=== PATIENT | female | born 1960 | race Caucasian/White ===

== ENCOUNTER → 2023-10-31 11:01 | Outpatient (REF) | payer MEDICARE, SELFPAY | LOC: WDC 11:01 | PROVIDERS: ATTENDING PHYSICIAN Student in an Organized Health Care Education/Training Program | DX: Z12.31 Encounter for screening mammogram for malignant neoplasm of breast (principal) | CPT/HCPCS: 77063; 77067 ==

== ENCOUNTER → 2023-11-20 09:57 | Outpatient (REF) | payer MEDICARE, SELFPAY | LOC: HWRAD 09:57 | PROVIDERS: ATTENDING PHYSICIAN Student in an Organized Health Care Education/Training Program | DX: M25.562 Pain in left knee (principal); M25.521 Pain in right elbow | CPT/HCPCS: 73080; 73564 ==

== ENCOUNTER → 2024-11-16 15:36 | Outpatient (REF) | payer MEDICARE, SELFPAY | LOC: WDC 15:36 | PROVIDERS: ATTENDING PHYSICIAN Student in an Organized Health Care Education/Training Program | DX: Z12.31 Encounter for screening mammogram for malignant neoplasm of breast (principal) | CPT/HCPCS: 77063; 77067 ==

== ENCOUNTER → 2024-11-30 15:30 | Outpatient (REF) | payer MEDICARE, SELFPAY | LOC: HWRCS 15:30 | PROVIDERS: ATTENDING PHYSICIAN Internal Medicine Interventional Cardiology; FAMILY PHYSICIAN Student in an Organized Health Care Education/Training Program | DX: R00.2 Palpitations (principal); R06.09 Other forms of dyspnea | CPT/HCPCS: 93306 ==

== ENCOUNTER → 2024-12-09 08:16 | Outpatient (REF) | payer MEDICARE, SELFPAY | LOC: HWRCS 08:16 | PROVIDERS: ATTENDING PHYSICIAN Internal Medicine Interventional Cardiology; FAMILY PHYSICIAN Student in an Organized Health Care Education/Training Program | DX: R00.2 Palpitations (principal); R06.09 Other forms of dyspnea | CPT/HCPCS: 78452; 93017; A9500 ==

== ENCOUNTER 2025-03-14 06:22 | Day surgery (SDC) | payer MEDICARE, SELFPAY ==
[2025-03-14] VITALS (9 sets, daily range): BP systolic 104–134; BP diastolic 54–69; BMI 27.7
[2025-03-14] MEDS: NSS 206 ML IV (07:10)
--- NOTE | 2025-03-14 07:19 | ITS.CL.CATH ---
[facility] - Catheterization
Cardiac Catheterization
Procedure Report:
LEFT HEART CATHETERIZATION
Date of Procedure: March 14, 2025
Referring: Shara Gilliland MD
PROCEDURES:
1. Left heart catheterization, coronary angiogram.
2. Moderate sedation.
INDICATION: Ms. Campbell is a 65 year old with hypertension, hyperlipidemia with ongoing exertional chest burning with abnormal ECG portion on stress test being referred to left heart catheterization.
ACCESS: Right radial artery, 6Fr. sheath, under US guidance.
HEMODYNAMICS : (mmHg)
AO (s/d) : 154/75
LVEDP : 18
No significant gradient across the aortic valve to suggest aortic stenosis.
CORONARY FINDINGS
Dominance: Right
Left Main Trunk (LMT): Large caliber vessel that gives rise to the LAD and LCx branches and is free of angiographic disease.
Left Anterior Descending Artery (LAD): Large caliber vessel that gives off 2 major diagonal branches as it courses along the anterior inter-ventricular groove before wrapping around the cardiac apex. The LAD and its branches are free of
angiographic disease.
Left Circumflex Artery (LCx): Large caliber vessel that gives off one major arborizing obtuse marginal (OM) branches as it courses along the atrio-ventricular (AV) groove. The LCx and its branches are free of angiographic disease.
Right Coronary Artery (RCA): Large caliber dominant moderately tortuous vessel that gives rise to the posterior descending artery (RPDA) and postero-lateral ventricular (RPLV) branches distally. The RCA and its branches are free of angiographic
disease.
SEDATION: 17 minutes of procedural sedation was utilized. IV Midazolam and IV Fentanyl were administered. An independent biomedical scientist was present to assist with and help manage the patient's level of consciousness and physiologic status.
RADIATION SUMMARY: Fluoro Time (min): 6.6, Dose (mGy): 152.37 DAP (Gy.cm2) : 10.55
Closure Device: There were no immediate intra-procedural complications. The sheath was pulled in the label stamper and a vascular-band applied to the right wrist for radial artery hemostasis using the patent hemostasis technique.
CONCLUSIONS
1. No obstructive coronary artery disease.
2. LVEDP is 18 mmHg
RECOMMENDATIONS
1. Wean radial band per protocol. Monitor right hand perfusion and for bleeding from the radial site following removal of the vascular-band following trans-radial access.
2. Continue aggressive medical therapy and risk factor modification for secondary CAD prevention.
3. Hydrate with normal saline to mitigate the risk of contrast-induced acute kidney injury.
4. Explore noncardiac causes of chest pain eliana GI given ongoing chest burning.
Shara Gilliland MD, FACC, [facility]
[2025-03-14] MEDS: NSS 1000 IV (08:41)
[2025-03-14] MEDS: TYLENOL 650 MG PO (09:46)
== END 2025-03-14 11:15 | disposition home or self-care (01) ==
LOC: CATH 06:22
PROVIDERS: ATTENDING PHYSICIAN Internal Medicine Interventional Cardiology; FAMILY PHYSICIAN Student in an Organized Health Care Education/Training Program
DX: R07.89 Other chest pain (principal); R94.31 Abnormal electrocardiogram [ECG] [EKG]; E78.5 Hyperlipidemia, unspecified; I10 Essential (primary) hypertension; Z13.6 Encounter for screening for cardiovascular disorders; R06.09 Other forms of dyspnea; Z79.82 Long term (current) use of aspirin
CPT/HCPCS: 93458; 99152; C1894; Q9967